=== PATIENT | female | born 1975 | race African-American/Black ===

== ENCOUNTER 2018-04-23 16:02 | Emergency (ER) | END 2018-04-23 18:59 | disposition home or self-care (01) ==

== ENCOUNTER 2018-07-24 15:39 | Emergency (ER) | payer BC ==
[~2018-07-24] VITALS: Ht 175.3 cm; Wt 140.9 kg
[~2018-07-24 15:39] MED LIST: ADV50050 INHALATION; ALBU2.5V3 NEB; ALBU90AE INHALATION; AZIT250T PO; BACL10TA PO; LORA10TA3 PO; ONDA4TAB95 PO; OXYC-209 PO; RANI150T5 PO
[2018-07-24 16:43] VITALS: Ht 175.3 cm; Wt 140.9 kg
[2018-07-24] MEDS ORDERED: LEVETIRACETAM 1000 MG (PMX) 100 ML IVPB STA (16:55)
[2018-07-24] MEDS ORDERED: TOPIRAMATE 100 MG TAB PO ONE (17:00)
[2018-07-24] MEDS ORDERED: TOPI100T PO (18:19)
--- NOTE | 2018-07-24 18:22 | ERD ---
ER Documentation Chief Complaint Chief Complaint PtJl DOSS with c/o seizure episode HPI This is a 43-year-old female with a history of seizure disorder who had a seizure today that was witnessed that was tonic clonic for less than a minute. Patient was postictal for 10 minutes. The patient says she gets an aura before each seizure and she had her typical aura today. She said that she had a seizure last Monday and went to an outside ER. The patient says that she is on no medications and she was told she had a seizure because she was taking Levaquin at that time. The patient says she took Topamax for migraine and seizure control and that works the best for her. She said her last seizure was 7 years ago outside of last weekend. She is denying any headache chest pain shoulder pain recent illness or trauma ROS All systems reviewed and are negative except as per history of present illness. Medications Home Meds Active Scripts Topiramate* (Topamax*) 100 Mg Tablet, 100 MG PO BID, #60 TAB 2 Refills Prov:MUKESH JOSE DO 07/24/18 Azithromycin* (Zithromax*) 250 Mg Tablet, 250 MG PO DAILY for 4 Days, TAB Prov:BOOGIE RO MD 04/23/18 Reported Medications Ondansetron Hcl* (Ondansetron Hcl*) 4 Mg Tablet, 4 MG PO Q4H PRN for NAUSEA AND OR VOMITING, TAB 04/23/18 Oxycodone HCl/Acetaminophen (Percocet 10-325 mg Tablet) 1 Each Tablet, 1 TAB PO Q8 PRN for PAIN LEVEL 8-10, TAB 04/23/18 Loratadine* (Loratadine*) 10 Mg Tablet, 10 MG PO DAILY, #30 TAB 04/23/18 Baclofen* (Baclofen*) 10 Mg Tablet, 10 MG PO TID PRN for PAIN LEVEL 4-6, TAB 04/23/18 Salmeterol Xinaf-Fluticasone* (Advair*) 500/50 Diskus Inhaler, 1 INH INHALATION BID, #1 INHALER 04/23/18 Albuterol Sulfate (Proair Respiclick) 90 Mcg Aer.pow.ba, 2 PUFFS INHALATION Q6 PRN for SHORTNESS OF BREATH, #1 BOTTLE 04/23/18 Albuterol Sulfate* (Albuterol Sulfate* Neb) 0.083%-3 Ml Neb, 1.25 MG NEB Q4H PRN for SHORTNESS OF BREATH, #30 VIAL 04/23/18 Ranitidine Hcl* (Ranitidine Hcl*) 150 Mg Tablet, 150 MG PO Q12, #60 TAB 04/23/18 Allergies Allergies: Coded Allergies: adhesive tape (Verified Allergy, Unknown, 04/23/18) ceftriaxone (Verified Allergy, Unknown, 04/23/18) PMhx/Soc History of Surgery: Yes (Hysterectomy) Anesthesia Reaction: No Hx Neurological Disorder: No Hx Respiratory Disorders: No Hx Cardiac Disorders: No Hx Psychiatric Problems: No Hx Miscellaneous Medical Probl: Yes (REYNAUDS, FIBROMYALGIA, LUPUS) Hx Alcohol Use: No Hx Substance Use: No Hx Tobacco Use: No Smoking Status: Never smoker FmHx Family History: No coronary disease Physical Exam Vitals Vital Signs Date Temp Pulse Resp B/P (MAP) Pulse Ox O2 O2 Flow FiO2 Time Delivery Rate 07/24/18 97.7 64 18 115/63 97 16:43 (80) Physical Exam Const: Well-developed, well-nourished Head: Atraumatic, normocephalic Eyes: Normal Conjunctiva, PERRLA, EOMI, normal sclera, no nystagmus ENT: Normal External Ears, Nose and Mouth, moist mucus membranes. Neck: Full range of motion. No meningismus, no lymphadenopathy. Resp: Clear to auscultation bilaterally, no wheezing, rhonchi, rales Cardio: Regular rate and rhythm, no murmurs, S1 S2 present Abd: Soft, non tender x 4, non distended. Normal bowel sounds, no guarding or rebound, no pulsitile abdominal masses or bruits Skin: No petechiae or rashes, no ecchymosis , no maculopapular rash Back: No midline or flank tenderness Ext: No cyanosis, or edema, FROM x 4, normal inspection, neurovascularly intact x 4 Neur: Awake and alert, STR 5/5 x 4, sensation intact x 4, no focal findings, cerebellum intact Psych: Normal Mood and Affect Results 24 hrs Current Medications Medications Dose Sig/Leroy Start Time Status Last (Trade) Ordered Route PRN Stop Time Admin Dose Reason Admin 100 ml @ ONCE STAT 07/24/18 DC 07/24/18 Levetiracetam 400 mls/hr IVPB 16:55 17:15 07/24/18 17:09 Topiramate 100 mg ONCE ONCE 07/24/18 DC 07/24/18 (Topamax) PO 17:00 17:15 07/24/18 17:01 Procedures/MDM Patient will be loaded with IV Keppra and will discharge with Topamax twice daily. She is going to follow-up with her neurologist. Patient is having some breakthrough seizures. The patient states that she has not been on seizure med for a few years but I told her were going to restart now she is agreeable Patient feels much better at this time, and vital signs are normal, symptoms have improved. I did give strict instructions to return to the ED if symptoms continue or worsen, patient will otherwise follow-up with primary care physician. Patient understood instructions and agreed to plan. Disclaimer: Inadvertent spelling and grammatical errors are likely due to EHR/dictation software use and do not reflect on the overall quality of patient care. Also, please note that the electronic time recorded on this note does not necessarily reflect the actual time of the patient encounter. Departure Diagnosis: Primary Impression: Seizure disorder Condition: Stable Patient Instructions: Seizure, Recurrent [Adult] Referrals: DOCTOR,NOT ON STAFF (PCP) MUKESH JOSE DO Jul 24, 2018 18:22
[2018-07-24 21:38] VITALS: BP 132/72; PULSE 66; RESP 16
== END 2018-07-24 21:38 | disposition home or self-care (01) ==
LOC: E/R 15:39
DX: G40.909 Epilepsy, unspecified, not intractable, without status epilepticus (principal); R40.2142 Coma scale, eyes open, spontaneous, at arrival to emergency department; R40.2362 Coma scale, best motor response, obeys commands, at arrival to emergency department; R40.2252 Coma scale, best verbal response, oriented, at arrival to emergency department
CPT/HCPCS: 96374; 99284; J1953